=== PATIENT | female | born 1995 | race Caucasian/White ===

== ENCOUNTER 2016-12-08 00:51 | Emergency (ER) | payer OTHER ==
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
[2016-12-08 01:09] VITALS: BP 131/83; PULSE 102; TEMP 97.2; BMI 25.8
[2016-12-08 01:30] LABS: MCH 28.5 pg (25.7-33.7); MCHC 33.2 g/dl (32.0-36.0); MEAN CELL VOLUME 85.7 fl (80-96); MEAN PLT VOLUME 9.1 fl (7.5-11.1); PLATELET COUNT 229 K/MM3 (134-434); RDW 12.3 % (11.6-15.6)
[2016-12-08 01:44] LABS: INR 1.02 (0.82-1.09); PROTHROMBIN TIME (PATIENT) 11.2 SEC (9.98-11.88)
[2016-12-08 01:47] LABS: ACTIVATED PTT 30.2 SECONDS (26.9-34.4)
[2016-12-08 01:52] LABS: CALCIUM 8.1 mg/dL (8.5-10.1); COCKROFT - GAULT 150.2035; CREATININE 0.7 mg/dL (0.55-1.02)
[2016-12-08] MEDS ORDERED: POTASSIUM CHLORIDE TABS 20 MEQ TABLET.ER (FP) PO ONE ×2 (04:58→05:01)
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
== END 2016-12-08 07:09 | disposition home or self-care (01) ==
LOC: JER 00:51
DX: S10.91XA Abrasion of unspecified part of neck, initial encounter (principal); F10.120 Alcohol abuse with intoxication, uncomplicated; Y90.8 Blood alcohol level of 240 mg/100 ml or more; V57.5XXA Driver of pick-up truck or van injured in collision with fixed or stationary object in traffic accident, initial encounter; Y92.414 Local residential or business street as the place of occurrence of the external cause; Y93.89 Activity, other specified; Y99.8 Other external cause status
CPT/HCPCS: 36415; 70450-TC; 72125-TC; 80048; 80307; 84703; 85027; 85610; 85730; 99281-25; 99282-25